=== PATIENT | female | born 1970 | race African-American/Black ===

== ENCOUNTER 2016-08-26 18:48 | Emergency (ER) | payer OTHER ==
[~2016-08-26] VITALS: Ht 167.6 cm; Wt 68.0 kg
[2016-08-26] MEDS ORDERED: ASPIR 8181 MG ORAL (19:19)
[2016-08-26] MEDS ORDERED: KEPPRA1000 MG ORAL ×2 (19:19→23:51)
[2016-08-26] MEDS ORDERED: LISINOPRIL5 MG ORAL (19:19)
[2016-08-26] MEDS ORDERED: HYDRALAZINE HCL50 MG ORAL (19:19)
[2016-08-26 19:48] VITALS: BP 127/73
--- NOTE | 2016-08-26 22:26 | Emergency Room Report ---
History of Present Illness General Chief Complaint: Upper Extremity Injury Source: Patient Present Illness HPI 46-year-old female presents to emergency Department complaining of right upper extremity pain 10 out of 10 in severity x5 days. Patient states pain began in the right armpit area and progressed down towards the elbow, and a hard mass from the armpit extending down the under arm. Patient reports some mild swelling noted to the arm denies erythema, increased temperature palpation, recent fall/trauma. Or previous injury or history of pain in the affected extremity. Patient reports a history of blood clots, brain aneurysm, stroke,, seizures and hypertension. Patient states she is prescribed 1000 mg Keppra daily however she has been out of her medication and her doctor said it would be arriving soon be a mail order. Patient also reports taking aspirin daily in addition to lisinopril. She denies nausea, vomiting, fevers, chills. Denies numbness tingling or loss of sensation or gross motor movements of the extremities, incontinence of bowel or bladder. Denies CP, Palpitations, LOC, AMS , dizziness, Changes in Vision, Sensation, paresthesias, or a sudden severe headache. Allergies: Coded Allergies: No Known Allergies (Unverified , 08/26/16) Patient History Past Medical History: see triage record, seizures Past Surgical History: none Pertinent Family History: none Last Menstrual Period: 07/29/16 Now: No Reviewed Nursing Documentation: PMH: Agreed, PSxH: Agreed Nursing Documentation-PMH Past Medical History: No Stated History Hx Cardiac Problems: Yes - november 2014 3 aneurysm and stroke, brain shunt Hx Seizures: Yes Review of Systems All Other Systems: negative except mentioned in HPI Physical Exam Vital Signs Date Time Temp Pulse Resp B/P Pulse Ox O2 Delivery O2 Flow Rate FiO2 08/26/16 19:12 98.1 60 16 127/73 99 Room Air Sp02 EP Interpretation: reviewed, normal General Appearance: no apparent distress, alert, GCS 15, non-toxic Head: normocephalic, atraumatic Eyes: bilateral eye PERRL, bilateral eye normal inspection ENT: hearing grossly normal, normal pharynx, no angioedema, normal voice Neck: full range of motion, supple/symm/no masses Respiratory: chest non-tender, lungs clear, normal breath sounds, speaking full sentences Cardiovascular #1: regular rate, rhythm, no edema Cardiovascular #2: 2+ radial (R), 2+ radial (L) Rectal: deferred Musculoskeletal: back normal, gait/station normal, normal range of motion, no calf tenderness, tender - significant TTP of the right UE from the right axillae to the medial elbow. palpable tender chord noted, no erythema, no increased temperature to palpation. Neurologic: alert, oriented x3, responsive, motor strength/tone normal, sensory intact, speech normal Psychiatric: judgement/insight normal, memory normal, mood/affect normal, no suicidal/homicidal ideation Skin: normal color, no rash, warm/dry, well hydrated Lymphatic: no adenopathy Medical Decision Making PA Attestation Dr. Leonard is my supervising Physician whom patient management has been discussed with. Diagnostic Impression: Primary Impression: Pain of upper extremity Qualified Codes: M79.601 - Pain In Right Arm Additional Impression: Hx of seizure disorder ER Course Pt. presents to the ED c/o lright upper extremity pain x5 days, mild unilateral swelling, and a hard mass from the armpit extending down the under arm. denies erythema or increase in temperature. Pt reports hx or stroke, blood clot, aneurysm and seizures Ddx considered but are not limited to Cellulitis, DVT, tendonitis, varicose vein , PAD,Venous insufficiency,, phlebitis Vital signs: are WNL, pt. is afebrile H&PE are most consistent with possible tendonitis will r/o DVT due to pt. hx, and HPI with PE of significant pain with palpable chord. ORDERS: -Venous duplex U/s of the Right UE: to R/O dvt-- was negative for DVT. ED INTERVENTIONS: -1000mg Keppra PO DISCHARGE: At this time pt. is stable for d/c to home. Will provide printed patient care instructions, and any necessary prescriptions. Care plan and follow up instructions have been discussed with the patient prior to discharge. Last Vital Signs Date Time Temp Pulse Resp B/P Pulse Ox O2 Delivery O2 Flow Rate FiO2 08/26/16 19:48 98.1 16 127/73 99 Room Air 08/26/16 19:12 60 Disposition: HOME, SELF-CARE Condition: Stable Scripts Levetiracetam (KEPPRA) 1,000 Mg Tablet 1000 MG ORAL DAILY, #30 TAB 0 Refills Prov: Izabel Reyes P.Carlota 08/26/16 Acetaminophen* (TYLENOL EXTRA STRENGTH*) 500 Mg Tablet 500 MG ORAL Q6H, #30 TAB 0 Refills Prov: Izabel Reyes 08/26/16 Referrals: [facility] (PCP) Patient Instructions: Pain Without a Known Cause Additional Instructions: Take medications as directed. Follow up with PCP in 3 days. to further evaluate cause of pain in the upper extremity. Return sooner to ED if new symptoms occur, or current symptoms become worse. Izabel Reyes Aug 26, 2016 22:26
[2016-08-26] MEDS ORDERED: TYLENOL EXTRA500 MG ORAL (23:51)
[2016-08-27] VITALS: BP 124/71
[2016-08-27 00:05] VITALS: BP 127/73
--- NOTE | 2016-09-17 14:23 | Diagnostic Imaging Report ---
APPROVED REPORT CPT Code: 71998 Present Symptoms Upper Extremity Pain: Right RIGHT UPPER EXTREMITY: Venous imaging reveals patency of the internal jugular, subclavian, axillary and brachial veins. The cephalic and basilic veins are also patent. Doppler indicates normal spontaneous flow within these venous segments.
== END 2016-08-27 00:04 | disposition home or self-care (01) ==
LOC: EMR 20:02
DX: M79.601 Pain in right arm (principal); G40.909 Epilepsy, unspecified, not intractable, without status epilepticus; Z86.73 Personal history of transient ischemic attack (TIA), and cerebral infarction without residual deficits
CPT/HCPCS: 80299; 93971; 99283

== ENCOUNTER 2016-09-26 17:49 | Emergency (ER) | payer OTHER ==
[~2016-09-26] VITALS: Ht 167.6 cm; Wt 66.7 kg
[~2016-09-26 17:49] MED LIST: ASPIR 8181 MG ORAL; HYDRALAZINE HCL50 MG ORAL; KEPPRA1000 MG ORAL; LISINOPRIL5 MG ORAL; TYLENOL EXTRA500 MG ORAL
[2016-09-26 18:20] VITALS: BP 122/68
[2016-09-26] MEDS ORDERED: PROMETHAZINE-D118 ML ORAL (19:21)
[2016-09-26] MEDS ORDERED: ZITHROMAX250 MG ORAL (19:21)
[2016-09-26 19:27] VITALS: BP 159/79
[2016-09-26 19:28] VITALS: BP 122/68
--- NOTE | 2016-09-27 13:55 | Emergency Room Report ---
History of Present Illness General Chief Complaint: Upper Respiratory Illness Source: Patient Present Illness HPI The patient is a 46-year-old female presenting for one month of productive cough and fevers. The patient states that she was treated for pneumonia 2 months prior and symptoms resolved initially and then returned. The patient denies any sick contacts or recent travel. Patient states that she produces a yellow to green sputum with a cough. Patient denies any other symptoms including nausea, vomiting, chest pain, shortness of breath, rash Allergies: Coded Allergies: No Known Allergies (Unverified , 08/26/16) Patient History Past Medical History: see triage record Pertinent Family History: none Social History: Reports: smoking Last Menstrual Period: 09/14/16 Now: No Reviewed Nursing Documentation: PMH: Agreed, PSxH: Agreed Nursing Documentation-PMH Hx Cardiac Problems: Yes - november 2014 3 aneurysm and stroke, brain shunt Hx Seizures: Yes Review of Systems All Other Systems: negative except mentioned in HPI Physical Exam Vital Signs Date Time Temp Pulse Resp B/P Pulse Ox O2 Delivery O2 Flow Rate FiO2 09/26/16 18:09 97.3 55 17 122/68 98 Room Air Sp02 EP Interpretation: reviewed, normal General Appearance: no apparent distress, alert, GCS 15, non-toxic Head: normocephalic, atraumatic ENT: hearing grossly normal, normal pharynx, no angioedema, normal voice Neck: full range of motion, supple/symm/no masses Respiratory: chest non-tender, no respiratory distress, no accessory muscle use , speaking full sentences, wheezing - diffuse Cardiovascular #1: regular rate, rhythm, no edema Musculoskeletal: back normal, gait/station normal, normal range of motion, non- tender Neurologic: alert, oriented x3, responsive, motor strength/tone normal, sensory intact, speech normal Psychiatric: judgement/insight normal, memory normal, mood/affect normal, no suicidal/homicidal ideation Skin: normal color, no rash, warm/dry, well hydrated Lymphatic: no adenopathy Medical Decision Making PA Attestation Dr. Flores is my supervising physician. Patient management was discussed with my supervising physician Diagnostic Impression: Primary Impression: Atypical pneumonia ER Course The patient is a 46-year-old female presenting for one month of productive cough and fevers Differential diagnosis include but not limited to bronchitis, pharyngitis, sinusitis, PNA PE: Afebrile. Apparent distress. HEENT: Unremarkable. No tonsillar edema or erythema. No exudate. Uvula midline. Lungs: Diffuse wheezing. Skin is warm and dry Otherwise unremarkable Chest x-ray unremarkable The patient will be treated for atypical pneumonia due to prolonged symptoms and recent pneumonia. Patient is given a prescription for azithromycin and cough medication. ER precautions are given Chest X-Ray Diagnostic Results EP Interpretation: Yes Findings: no consolidation, no effusion, no pneumothorax, no acute cardiopulmonary disease Number of Views: 1 PA Scribe Text I am acting as scribe for my supervising physician. My supervising physician's interpretation of the chest xrays are there is no consolidation, no effusion, no acute cardiopulmonary disease, no pneumothorax Last Vital Signs Date Time Temp Pulse Resp B/P Pulse Ox O2 Delivery O2 Flow Rate FiO2 09/26/16 19:28 97.3 79 17 122/68 98 Room Air Status: improved Disposition: HOME, SELF-CARE Condition: Improved Scripts Azithromycin* (ZITHROMAX*) 250 Mg Tablet 250 MG ORAL DAILY, #6 TAB 0 Refills Take two tables once daily for 1 day, then one tablet once daily for 4 days. Prov: EUGENIA JIANG 09/26/16 D-Methorphan Hb/Prometh Hcl* (PROMETHAZINE-DM SYRUP*) 118 Ml Syrup 5 ML ORAL Q6H Y for For Cough, #118 ML 0 Refills Prov: EUGENIA JIANG 09/26/16 Patient Instructions: Cough, Adult Additional Instructions: I discussed my findings with the patient. All questions and concerns have been answered. Treatment and medication compliance have been addressed. I advised the patient that they need to follow up with PMD in 3-5 days. Return to ED if pain remains or worsens, cough worsens or remains, you notice blood in your sputum, you notice wheezing, you experience a fever, or if needed for any reason. Patient verbalized understanding of discharge instructions. EUGENIA JIANG Sep 27, 2016 13:55
--- NOTE | 2016-10-08 14:09 | Diagnostic Imaging Report ---
Indication: COUGH Technique: One view of the chest Comparison: none Findings: Lungs and pleural spaces are clear. Heart size is normal. Ventriculoperitoneal shunt tubing traverses the right chest, extends into the left abdomen Impression: No acute process
== END 2016-09-26 19:28 | disposition home or self-care (01) ==
LOC: EMR 19:05
DX: J18.9 Pneumonia, unspecified organism (principal)
CPT/HCPCS: 71010; 99284